=== PATIENT | male | born 1950 | race Hispanic/Latino ===

== ENCOUNTER → 2018-02-21 | Outpatient (CLI) | payer MEDICARE ==
--- NOTE | 2018-02-22 13:27 | Diagnostic Imaging Report ---
History: Back and left leg pain Comparison studies: None Technique: Sagittal, coronal and axial T2 , sagittal T1 and IR, axial spin density oblique. Intravenous contrast: None Findings: Number of lumbar vertebral bodies:5 Alignment: Grade 1 anterolisthesis of L4 over L5 with associated facet arthropathy.Mild levoscoliosis centered at L2. Soft tissues: No T2 hyperintense inflammatory changes. 2.5 cm cyst is seen at the left kidney upper pole Paraspinal muscles: Mild fatty infiltration of the paraspinal musculature. Lower thoracic cord:Normal in signal and morphology. The tip of the conus is at T12-L1. Cauda equina: No masses. No arachnoiditis. Vertebrae: Normal in height and signal intensity. No acute compression fractures, infection or neoplasm. Chronic wedge compression deformity of L2 vertebral body with approximately 30% anterior height loss Degenerative changes: L1-L2: Disc degeneration with loss of T2 signal. Mild diffuse disc bulge and mild facet hypertrophy without significant canal stenosis or foraminal narrowing. L2-L3: Mild disc degeneration with loss of T2 signal. Asymmetric right disc bulge mild facet hypertrophy and ligamentum flavum thickening results in moderate canal stenosis and mild bilateral foraminal narrowing. L3-L4: Disc degeneration with loss of T2 signal. Diffuse disc bulge mild facet hypertrophy and ligamentum flavum thickening results in no significant canal stenosis and mild right foraminal narrowing. L4-L5: Disc degeneration with obliterated intervertebral space and Modic type I changes more prominent towards the left side. Uncoverage of the superior disc material, moderate facet hypertrophy and ligamentum flavum thickening results in mild canal stenosis, narrowing of the bilateral subarticular recesses (more in the left), mild right and severe left foraminal narrowing. Fluid is seen at the bilateral facet joints with periarticular inflammatory changes. L5-S1: Patent canal and foramina. Additional findings: None IMPRESSION: Severe left foraminal narrowing at L4-L5 secondary to grade 1 anterolisthesis and moderate posterior element hypertrophy. Impingement of the left exiting L4 nerve root. Chronic compression deformity of L2 vertebral body. Moderate canal stenosis and mild bilateral foraminal narrowing at L2-L3. Diffuse disc degenerative changes more significant at L4-L5 with Modic type I changes in this level. Moderate facet hypertrophy with synovitis changes and periarticular inflammation at L4-L5. Other degenerative changes as described above Signed by: DR Cliff Solis M.D. on 02/22/2018 1:24 PM
== END ==
LOC: MRI 09:25
PROVIDERS: ATTEND Family Medicine
DX: M54.16 Radiculopathy, lumbar region (principal)
CPT/HCPCS: 72148

== ENCOUNTER → 2018-04-09 | Outpatient (CLI) | payer MEDICARE ==
--- NOTE | 2018-04-09 17:10 | Diagnostic Imaging Report ---
Three-phase Bone Scan with SPECT Clinical information: 57 M with mid back pain x 3 months. Patient is diabetic. Sustained fall 3 months ago due to lower extremity numbness. Report of L2 vertebral compression fracture. Comparison studies: MRI lumbar spine 02/21/2018 Technique: Following intravenous administration of 26 millicuries of Tc-99m MDP, dynamic flow and immediate blood pool images of the mid and lower back and 3-hour delayed total body and selected spot images were obtained. Tomographic images of the lower thoracic and lumbar spine were also obtained Findings: Flow and blood pool images are unremarkable. No abnormal focal accumulation of tracer is identified. The delayed planar images show diffusely increased tracer in the mid to lower thoracic spine on the right without focal abnormality and increased tracer at L5/S1 bilaterally, consistent with degenerative changes. The tomographic images localize uptake in the thoracic spine to the anterior vertebral bodies and to the bilateral facet joints at L5/S1. Degenerative changes are also seen in shoulders, hands, knees and ankles (right worse that left). Otherwise, distribution of tracer is unremarkable throughout the skeletal system. No abnormal accumulation of tracer is seen in the soft tissues or urinary tract. Impression: 1. Degenerative changes in the mid to lower thoracic spine and in L5/S1 facet joints bilaterally. Degenerative changes are also seen in multiple peripheral joints. 2. No acute osteoblastic process in L2 to suggest recent compression fracture. 3. No scan evidence of metastatic or metabolic bone disease. Signed by: Dr. Bettie Schaefer M.D. on 04/09/2018 5:07 PM
== END ==
LOC: NM 10:46
PROVIDERS: ATTEND Specialist
CPT/HCPCS: 78306; A9503